=== PATIENT | male | born 1955 | race African-American/Black ===

== ENCOUNTER 2017-07-27 08:55 | Day surgery (SDC) | payer BC, OTHER ==
[2017-07-26 12:30] VITALS: BMI 28.3
[2017-07-27] MEDS ORDERED: DEXAMETHASONE SOD PHOSPHATE 4 MG/1 ML VIAL ONE (11:13)
[2017-07-27] MEDS ORDERED: LIDOCAINE HCL 1%, 10 MG/ML (20ML VIAL) ONE (11:13)
[2017-07-27] MEDS ORDERED: BUPIVACAINE HCL/PF 0.5% (5MG/ML) 10 ML VIAL ONE (11:13)
[2017-07-27] MEDS ORDERED: MIDAZOLAM HCL 2 MG/2 ML SINGLE DOSE VIAL ONE ×2 (11:26→12:22)
[2017-07-27] MEDS ORDERED: ceFAZolin SODIUM 1 GM VIAL ONE ×2 (11:46→12:44)
[2017-07-27] MEDS ORDERED: ceFAZolin SODIUM 1 GM VIAL IVPB ONE (11:47)
[2017-07-27] MEDS ORDERED: PROPOFOL 20 ML ONE (11:49)
[2017-07-27] MEDS ORDERED: BUPIVACAINE HCL/PF 0.5% (5MG/ML) 10 ML VIAL PNB ONE (12:00)
[2017-07-27] MEDS ORDERED: LIDOCAINE HCL 1%, 10 MG/ML (20ML VIAL) SNB ONE (12:00)
[2017-07-27] MEDS ORDERED: BACITRACIN 50,000 UNITS VIAL TP ONE (12:10)
[2017-07-27] MEDS ORDERED: KETOROLAC TROMETHAMINE 30 MG/1 ML VIAL ONE (12:44)
--- NOTE | 2017-07-27 14:12 | OP ---
Operative Note - Note: Operative Date: 07/27/17 Pre-Operative Diagnosis: Hallux Valgus Left. Hammer Toe 2nd left. Tailors Bunion Left Operation: Repair Hallux Valgus left with osteotomy and 2 screw fixation. Repair hammer toe 2nd toe left. Repair Tailors bunion left foot. Findings: Hypertrophic bone and soft tissue Implants: 2.4 mm osteomed lag screw x 16mm and 18mm Post-Operative Diagnosis: Same as Pre-op Surgeon: Mariano Baum [employer] Manager Architect: Nate Smith Anesthesia: Local, MAC Specimens Removed: Bone and soft tissue Estimated Blood Loss (mls): 5 (Tourniquette utilized 250mmhg 59 minutes) Operative Report Dictated: No
[2017-07-27 15:06] VITALS: BP 187/92; PULSE 76; TEMP 97.6
--- NOTE | 2017-07-31 13:01 | PATH ---
Surgical Pathology Report Patient Name: AIDEN VUONG [facility]. Rec. #: [id number] /Age/Gender: 1955 (Age: 62) / M Account: [id number] Location: [facility] SURGICAL Taken: 07/27/2017 Received: 07/27/2017 Reported: 07/31/2017 Physicians: Mariano Baum DPM Specimen(s) Received A: HAMMER TOE LEFT FOOT BONE B: LEFT FOOT BONE BUNION C: LEFT TAILORS BUNION BONE Clinical History Bunionette left foot Final Diagnosis A. BONE, FOOT, LEFT, HAMMERTOE, EXCISION: BENIGN BONE AND CARTILAGE WITH DEGENERATIVE CHANGES. B. BONE, FOOT, LEFT, BUNION, EXCISION: FRAGMENT OF BENIGN BONE AND FIBROVASCULAR TISSUE. C. BONE, LEFT, TAILOR'S BUNION, EXCISION: FRAGMENT OF BENIGN BONE AND DENSE FIBROCONNECTIVE TISSUE. Electronically Signed Isis Hsieh M.D. Gross Description A. Received in formalin labeled "hammertoe bone left foot," is a 1.2 x 0.8 x 0.7 cm davis portion of bone. The specimen is trisected and entirely submitted in one cassette, following decalcification. B. Received in formalin labeled "left foot bone bunion," is a 3.0 x 2.2 x 0.3 cm aggregate of multiple irregular portions of bone and soft tissue. Oncology Nurse sections are submitted in one cassette, following decalcification. C. Received in formalin labeled "bone from left Tailor's bunion," is a 1.0 x 0.8 x 0.2 cm portion of bone. The specimen is trisected and entirely submitted in one cassette, following decalcification. 07/28/2017 saudi07/28/2017
== END 2017-07-27 15:00 | disposition home or self-care (01) ==
LOC: JASU-SURG 08:55
PROVIDERS: ATTEND Podiatrist Foot Surgery
PROC: 0STQ0ZZ Resection of Left Toe Phalangeal Joint, Open Approach (ICD-10-PCS; 2017-07-27)
PROC: 0QBP0ZZ Excision of Left Metatarsal, Open Approach (ICD-10-PCS; principal; 2017-07-27 10:30)
DX: M20.12 Hallux valgus (acquired), left foot (principal); M21.622 Bunionette of left foot
CPT/HCPCS: 73630-TC-LT; 82962; 88304-TC; 88311-TC; 97116-GP